=== PATIENT | female | born 1955 | race Caucasian/White ===

== ENCOUNTER 2019-06-14 08:34 | Emergency (ER) | payer OTHER, MEDICAID ==
[~2019-06-14] VITALS: Ht 154.9 cm; Wt 68.0 kg
[2019-06-14 09:16] LABS: Basophils # (auto) 0.1 uL; Basophils % (auto) 0.7 % (0.0-2.0); Eosinophils # (auto) 0.2 uL; Eosinophils % (auto) 1.1 % (0.0-7.0); Hematocrit 38.5 % (36.0-46.0); Hemoglobin 13.2 g/dL (12.2-16.2); Lymphocytes # (auto) 3.2 uL; Mean Corpuscular Hemoglobin 31.1 pg (28.0-32.0); Mean Corpuscular Hgb Conc. 34.3 g/dL (32.0-36.0); Mean Corpuscular Volume 90.8 fL (80.0-100.0); Monocytes # (auto) 1.1 uL; Monocytes % (auto) 6.7 % (0.0-12.0); Neutrophils # (auto) 11.5 uL; Neutrophils % (auto) 71.5 % (37.0-80.0); Platelet Count (auto) 330 10^3/uL (140-450); Red Blood Cells 4.24 10^6/uL (4.0-5.20); Red Cell Distribution Width 13.2 % (11.8-14.3); White Blood Cell 16.1 10^3/uL (4.4-10.8)
[2019-06-14 09:31] LABS: INR 0.93 (0.9-1.15); Partial Thromboplastin Time 24.1 sec (23.64-32.05)
[2019-06-14 12:01] VITALS: BP 130/77
== END 2019-06-14 13:02 | disposition home or self-care (01) ==
LOC: ER 08:34
DX: R04.0 Epistaxis (principal); F32.9 Major depressive disorder, single episode, unspecified; F41.9 Anxiety disorder, unspecified; E78.5 Hyperlipidemia, unspecified
CPT/HCPCS: 30901; 36415; 85025; 85610; 85730

== ENCOUNTER 2021-07-14 18:00 | Inpatient (IN) | payer OTHER, MEDICAID ==
[~2021-07-14] VITALS: Ht 157.5 cm; Wt 61.6 kg
[2021-07-14 19:09] LABS: Hematocrit 41.1 % (36.0-46.0); Hemoglobin 14.1 g/dL (12.2-16.2); Mean Corpuscular Hgb Conc. 34.4 g/dL (32.0-36.0); Mean Corpuscular Volume 93.2 fL (80.0-100.0); Red Blood Cells 4.41 10^6/uL (4.0-5.20); Red Cell Distribution Width 11.8 % (11.8-14.3); White Blood Cell 20.9 10^3/uL (4.4-10.8)
[2021-07-14 19:12] LABS: Basophils % (manual) 0 (0.0-2.0); Blast Cells 0; Eosinophils % (manual) 0 (0-7); Metamyelocytes % 0; Myelocytes % 0; Promyelocytes % 0; Reactive Lymphocytes 0
[2021-07-14 19:26] LABS: Albumin 3.4 g/dL (3.4-5.0); BUN/Creatinine Ratio 11.8; Calcium 8.8 mg/dL (8.5-10.1); Potassium 3.2 mmol/L (3.5-5.1)
[2021-07-14 19:29] LABS: Bilirubin, Total 1.7 mg/dL (0.2-1.0); Total Protein 7.6 g/dL (6.4-8.2)
[2021-07-14] MEDS ORDERED: AZITHROMYCIN 500MG/ 250ML 250 ML IV ONE (20:15)
[2021-07-14] MEDS ORDERED: methylPREDNISolone SOD SUCC 125 MG/2 ML VL IV ONE (20:15)
[2021-07-14 20:49] LABS: Band Neutrophils % (manual) 35; Lymphocytes % (manual) 2 (10.0-50.0); Monocytes % (manual) 3 (0-12)
[2021-07-14 22:31] LABS: Lactic Acid w/Reflex 2.5 mmol/L (0.4-2.0)
[2021-07-14] MEDS ORDERED: ACETAMINOPHEN 325 MG TAB PO PRN (23:15)
[2021-07-14] MEDS ORDERED: TEMAZEPAM 15 MG CAP PO PRN (23:15)
[2021-07-14] MEDS ORDERED: ONDANSETRON HCL 4 MG/2 ML VIAL IV PRN (23:15)
[2021-07-14] MEDS ORDERED: MORPHINE SULFATE INJECTION 2 MG/ML SYRG IV PRN (23:15)
[2021-07-14] MEDS ORDERED: ALBUTEROL SULF 2.5 MG/0.5ML(0.5%) NEB SOLN NEB PRN (23:15)
[2021-07-14] MEDS ORDERED: NITROGLYCERIN 0.4 MG SL TAB SL PRN (23:15)
[2021-07-14] MEDS ORDERED: IOHEXOL 350 MG/ML 100ML IJ ONE (23:26)
[2021-07-15] VITALS (7 sets, daily range): BP systolic 136–153; BP diastolic 58–99
[2021-07-15] MEDS ORDERED: chlordiazePOXIDE HCL 25 MG CAP PO PRN (01:00)
[2021-07-15 02:43] LABS: INR 1.19 (0.9-1.15); Partial Thromboplastin Time 30.8 sec (23.6-33.0)
[2021-07-15] MEDS ORDERED: ASPI-543 PO (03:25)
[2021-07-15] MEDS ORDERED: OLAN20TA PO (03:25)
[2021-07-15] MEDS ORDERED: SERT100T PO (03:25)
[2021-07-15 07:28] LABS: Basophils # (auto) 0 10 ^3/uL (0-0.2); Basophils % (auto) 0.1 % (0.0-2.0); Eosinophils # (auto) 0 10 ^3/uL (0-0.8); Hematocrit 37.1 % (36.0-46.0); Hemoglobin 12.6 g/dL (12.2-16.2); Lymphocytes # (auto) 0.7 10 ^3/uL (0.4-5.4); Lymphocytes % (auto) 4.6 % (10.0-50.0); Mean Corpuscular Hemoglobin 31.6 pg (28.0-32.0); Monocytes # (auto) 0.7 10 ^3/uL (0-1.3); Monocytes % (auto) 4.4 % (0.0-12.0); Neutrophils # (auto) 14.2 10 ^3/uL (1.6-8.6); Neutrophils % (auto) 90.9 % (37.0-80.0); Red Blood Cells 3.98 10^6/uL (4.0-5.20); Red Cell Distribution Width 12.2 % (11.8-14.3); White Blood Cell 15.6 10^3/uL (4.4-10.8)
[2021-07-15 07:44] LABS: Albumin 2.8 g/dL (3.4-5.0); Calcium 8.4 mg/dL (8.5-10.1); Potassium 3.2 mmol/L (3.5-5.1)
[2021-07-15 07:48] LABS: BUN/Creatinine Ratio 19.2; Bilirubin, Total 1.5 mg/dL (0.2-1.0); Total Protein 6.2 g/dL (6.4-8.2)
[2021-07-15] MEDS: cefTRIAXone 1GM/50ML D5W 50 ML IV SCH (08:46)
[2021-07-15] MEDS: ENOXAPARIN SOD 40 MG/0.4 ML SYRINGE SC SCH (08:47)
[2021-07-15] MEDS ORDERED: SERTRALINE HCL 50 MG TAB PO SCH ×2 (10:00→18:30)
[2021-07-15] MEDS ORDERED: ZINC SULFATE 220mg CAP or TAB PO SCH (10:00)
[2021-07-15] MEDS ORDERED: ASCORBIC ACID 500 MG TAB PO SCH (10:00)
[2021-07-15] MEDS: AZITHROMYCIN 500MG/ 250ML 250 ML IV SCH (10:30)
[2021-07-15] MEDS: FOLIC ACID 1 MG, MULTIPLE VITAMIN 10 ML, MAGNESIUM SULF SDV 50% 8 MEQ, THIAMINE INJ 100... INJ SCH ×5 (12:47)
[2021-07-15] MEDS ORDERED: SERT50TA19 PO (13:02)
[2021-07-15] MEDS ORDERED: OLAN1TAB19 PO (13:02)
[2021-07-15] MEDS ORDERED: OLANZapine 5 MG TAB PO SCH (18:30)
[2021-07-16 05:00] VITALS: BP 142/101
[2021-07-16 09:00] VITALS: BP 149/100
[2021-07-16] MEDS: cefTRIAXone 1GM/50ML D5W 50 ML IV SCH (09:17)
[2021-07-16] MEDS: AZITHROMYCIN 500MG/ 250ML 250 ML IV SCH (09:17)
[2021-07-16] MEDS: ENOXAPARIN SOD 40 MG/0.4 ML SYRINGE SC SCH (09:18)
[2021-07-16] MEDS ORDERED: ASPirin-EC 81 mg tab PO SCH (10:00)
[2021-07-16] MEDS: FOLIC ACID 1 MG, MULTIPLE VITAMIN 10 ML, MAGNESIUM SULF SDV 50% 8 MEQ, THIAMINE INJ 100... INJ SCH ×5 (12:00)
[2021-07-16] MEDS ORDERED: DOXY-286 PO (12:49)
[2021-07-16] MEDS ORDERED: PRED20TA2 PO (12:49)
[2021-07-16 13:00] VITALS: BP 146/82
== END 2021-07-16 16:15 | disposition home or self-care (01) | DRG 195 ==
LOC: ER 18:02 → TELE 23:02 → TELE-EAST 07-15 02:20 → EAST 07-15 17:32 → CENTRAL 07-15 17:44
PROVIDERS: ADMIT Nurse Practitioner; ATTEND Hospitalist
DX: J18.9 Pneumonia, unspecified organism (principal); F31.9 Bipolar disorder, unspecified; K76.0 Fatty (change of) liver, not elsewhere classified; F41.9 Anxiety disorder, unspecified; R00.0 Tachycardia, unspecified; R74.01 Elevation of levels of liver transaminase levels; Z20.822 Contact with and (suspected) exposure to COVID-19; Z82.49 Family history of ischemic heart disease and other diseases of the circulatory system; Z83.3 Family history of diabetes mellitus
CPT/HCPCS: 36415; 71045; 71250; 71260; 74177; 80053; 82728; 83605; 83880; 85007; 85025; 85027; 85379; 85610; 85730; 87040; 87426; 93005; 96365; 96375; G0378; J0696

== ENCOUNTER 2021-11-11 23:55 | Emergency (ER) | payer OTHER, MEDICAID ==
[~2021-11-11] VITALS: Ht 154.9 cm; Wt 55.3 kg
[~2021-11-11 23:55] MED LIST: ASPI-543 PO; DOXY-286 PO; OLAN1TAB19 PO; PRED20TA2 PO; SERT50TA19 PO
[2021-11-12 05:03] VITALS: BP 150/82
[2021-11-12] MEDS ORDERED: CEPH-509 PO (08:21)
== END 2021-11-12 08:33 | disposition home or self-care (01) ==
LOC: ER 11-12 00:02
DX: S01.81XA Laceration without foreign body of other part of head, initial encounter (principal); E78.5 Hyperlipidemia, unspecified; Z79.82 Long term (current) use of aspirin; Z79.2 Long term (current) use of antibiotics; Z79.899 Other long term (current) drug therapy; W22.8XXA Striking against or struck by other objects, initial encounter; Y93.89 Activity, other specified; Y92.89 Other specified places as the place of occurrence of the external cause; Y99.8 Other external cause status
CPT/HCPCS: 12013; 70450; 72125; 99284; J2001

== ENCOUNTER 2021-11-15 10:57 | Emergency (ER) | payer OTHER, MEDICAID ==
[~2021-11-15] VITALS: Ht 157.5 cm; Wt 54.4 kg
[~2021-11-15 10:57] MED LIST changes: +CEPH-509 PO
[2021-11-15 11:19] VITALS: BP 154/73
== END 2021-11-15 11:28 | disposition home or self-care (01) ==
LOC: ER 10:57
DX: S01.81XD Laceration without foreign body of other part of head, subsequent encounter (principal); X58.XXXD Exposure to other specified factors, subsequent encounter

== ENCOUNTER 2021-11-20 12:57 | Emergency (ER) | payer OTHER, MEDICAID ==
[~2021-11-20] VITALS: Ht 162.6 cm; Wt 54.4 kg
[2021-11-20 14:24] VITALS: BP 94/74
== END 2021-11-20 14:25 | disposition home or self-care (01) ==
LOC: ER 12:57
DX: S01.81XD Laceration without foreign body of other part of head, subsequent encounter (principal); X58.XXXD Exposure to other specified factors, subsequent encounter

== ENCOUNTER 2022-01-11 21:27 | Emergency (ER) | payer OTHER, MEDICAID ==
[~2022-01-11] VITALS: Ht 154.9 cm; Wt 54.4 kg
[2022-01-12 10:56] LABS: Potassium 3.5 mmol/L (3.5-5.1)
[2022-01-12 11:02] LABS: Albumin 3.9 g/dL (3.4-5.0); BUN/Creatinine Ratio 18.8; Bilirubin, Total 0.9 mg/dL (0.2-1.0); Total Protein 8.1 g/dL (6.4-8.2)
[2022-01-12] MEDS ORDERED: IBUPROFEN 800 MG TAB PO ONE (14:15)
[2022-01-12] MEDS ORDERED: LABETALOL HCL 5 MG/ML 4ML SYRINGE IV ONE (14:30)
[2022-01-12] MEDS ORDERED: CEPH-509 PO (14:36)
[2022-01-12 15:52] VITALS: BP 174/84
== END 2022-01-12 16:49 | disposition home or self-care (01) ==
LOC: ER 21:27
DX: L03.116 Cellulitis of left lower limb (principal)
CPT/HCPCS: 36415; 73562; 73590; 73610; 73701; 80053; 93971; 96374; J3490

== ENCOUNTER 2023-07-21 11:01 | Emergency (ER) | payer OTHER, MEDICAID ==
[~2023-07-21] VITALS: Ht 157.5 cm; Wt 56.8 kg
[~2023-07-21 11:01] MED LIST changes: +APIX2.5T PO; +SERT-206 PO; -SERT50TA19 PO
[2023-07-21 12:21] VITALS: BP 115/70; PULSE 115; RESP 18; TEMP 97.2; O2SAT 98
[2023-07-21] MEDS ORDERED: HYDROcodone-ACET 10/325MG TAB PO ONE (12:30)
[2023-07-21] MEDS ORDERED: PERCOT PO (13:21)
== END 2023-07-21 13:48 | disposition home or self-care (01) ==
LOC: ER 11:01
DX: S32.018A Other fracture of first lumbar vertebra, initial encounter for closed fracture (principal); F41.9 Anxiety disorder, unspecified; F32.9 Major depressive disorder, single episode, unspecified; E78.5 Hyperlipidemia, unspecified; Z79.899 Other long term (current) drug therapy; W01.0XXA Fall on same level from slipping, tripping and stumbling without subsequent striking against object, initial encounter; Y93.89 Activity, other specified; Y92.098 Other place in other non-institutional residence as the place of occurrence of the external cause; Y99.8 Other external cause status
CPT/HCPCS: 72070; 72100; 72220

== ENCOUNTER 2024-01-01 14:31 | Emergency (ER) | payer OTHER, MEDICAID ==
[~2024-01-01] VITALS: Ht 157.5 cm; Wt 60.0 kg
[~2024-01-01 14:31] MED LIST changes: +PERCOT PO
[2024-01-01 16:01] VITALS: BP 149/79; PULSE 89; RESP 14; TEMP 97.8; O2SAT 97
[2024-01-01] MEDS: HYDROcodone-ACET 5/325MG TAB PO ONE (16:36)
[2024-01-01] MEDS ORDERED: TRAM-626 PO (16:57)
== END 2024-01-01 17:03 | disposition home or self-care (01) ==
LOC: ER 14:31
DX: G89.29 Other chronic pain (principal); M54.50 Low back pain, unspecified; M53.3 Sacrococcygeal disorders, not elsewhere classified; E78.5 Hyperlipidemia, unspecified
CPT/HCPCS: 72100; 72220

== ENCOUNTER 2024-11-09 20:39 | Emergency (ER) | payer OTHER, MEDICAID ==
[~2024-11-09] VITALS: Ht 157.5 cm; Wt 58.8 kg
[~2024-11-09 20:39] MED LIST changes: +TRAM-626 PO
--- NOTE | 2024-11-09 23:10 | DVH ---
HISTORY: FALL FACIAL TRAUMA TECHNIQUE: Nonenhanced axial images through the facial bones with coronal and sagittal MPR. Radiation Dose Information: CT Dose: CTDI volume is mGy. Dose-length product is mGy*cm COMPARISON: None FINDINGS: Soft tissues: Scalp hematoma in forehead and left periorbital region. Mandible: Unremarkable Maxilla: Unremarkable Zygomatic arches: Unremarkable Nasal bone: Unremarkable Orbits: Unremarkable Paranasal sinuses/Mastoid air cells/Middle ear cavities: Mild mucosal thickening in left maxillary sinus; otherwise unremarkable. Mastoid air cells and middle ear cavities are clear. IMPRESSION: Scalp hematoma in forehead and left periorbital region. No facial fracture. 2 [facility] Radiation optimization: All CT scans at this facility use at least one of these dose optimiza tion techniques: automated exposure control mA and/or kV adjustment per patient size (includes targe dayo exams where dose is matched to clinical indication) or iterative reconstruction.
[2024-11-10 00:27] VITALS: BP 156/89; PULSE 82; RESP 18; TEMP 97.6; O2SAT 97
--- NOTE | 2024-11-10 01:19 | ED.PDOC ---
HPI Comments PATIENT TRIPPED OVER A ROOT IN HER DRIVEWAY, HITTING HER HEAD ONTHE CONCRETE. PT HAS LEFT BLACK EYE, SWELLING, AND APPROXIMATE 2CM LACERATION ON HER LEFT CHEEK. DENIES LOC, DENIES N/V. DENIES LOC, NECK, BACK PAIN, CHEST PAIN, ABDOMINAL PAIN, NAUSEA, VOMITING, OR HIP PAIN Chief Complaint: Fall Injury Time Seen by MD: 21:14 Primary Care Provider: RICKY Emmanuel Notes: Nurses Notes, Medications, Allergies Allergies: Coded Allergies: NO KNOWN ALLERGIES (Unverified , 06/14/19) Home Meds Active Scripts Tramadol HCl (Tramadol HCl) 50 Mg Tab, 50 MG PO BID, #20 TAB Prov:MARSHALL CARO 01/01/24 Oxycodone W/ Acetaminophen (Percocet 5/325MG) 1 Tab Tb, 1 TAB PO Q8HP PRN, #20 TAB Prov:JEREMIE FERNANDEZ PAC 07/21/23 Apixaban Base (ELIQUIS) 2.5 Mg Tab, 2.5 MG PO BID, #60 TAB 0 Refills Prov:BÁRBARA CONNORS MD 01/28/22 Cephalexin (KEFLEX 500) 500 Mg Cap, 1 CAP PO TID for 7 Days, #21 CAP Prov:EVELIA FINNEGAN MD 01/12/22 Cephalexin (KEFLEX 500) 500 Mg Cap, 1 CAP PO QID for 5 Days, #20 CAP Prov:NATALIA RODRIGES MD 11/12/21 Prednisone (Prednisone) 20 Mg Tab, 20 MG PO DAILY, #5 MG Prov:BEBE ANDRADE MD 07/16/21 Doxycycline Hyclate (DOXYCYCLINE HYCLATE) 100 Mg Tab, 1 TAB PO BID, #14 TAB Prov:BEBE ANDRADE MD 07/16/21 Reported Medications Olanzapine (OLANZAPINE) 10 Mg Tab, 15 MG PO QPM for 30 Days, MG 07/15/21 Sertraline Hcl (Sertraline Hcl) 50 Mg Tab, 200 MG PO QPM for 30 Days, MG 07/15/21 Aspirin (Aspir-Low) 81 Mg Tab, 81 MG PO DAILY for 30 Days, MG 07/15/21 Mode of Arrival: Ambulatory Complexity: Intermediate Laceration Length (cm): 2 Appearance of Wound 2CM Past Medical History PAST MEDICAL HISTORY: Anxiety, Depression, High Lipids Surgical History: Denies all surgeries CURATORIAL ASSISTANT History: No Pertinent CURATORIAL ASSISTANT History Family History Family History: Reviewed,noncontributory to illness, Family hx of DM, Family hx of heart roberto, Family hx of HTN Social History Smoker: Non-Smoker Alcohol: Occasionally Drugs: Denies Drug Use Lives In: Home Constitutional: denies: chills, diaphoresis, fatigue, fever, malaise, sweats, weakness, others EENTM: denies: blurred vision, double vision, ear bleeding, ear discharge, ear drainage, ear pain, ear ringing, eye pain, eye redness, hearing loss, mouth pain, mouth swelling, nasal discharge, nose bleeding, nose congestion, nose pain, photophobia, tearing, throat pain, throat swelling, voice changes, others Respiratory: denies: cough, hemoptysis, orthopnea, SOB at rest, shortness of breath, SOB with excertion, stridor, wheezing, others Cardiovascular: denies: chest pain, dizzy spells, diaphoresis, Dyspnea on exertion, edema, irregular heart beat, left arm pain, lightheadedness, palpitations, PND, syncope, others Gastrointestinal: denies: abdomen distended, abdominal pain, blood streaked bowels, constipated, diarrhea, dysphagia, difficulty swallowing, hematemesis, melena, nausea, poor appetite, poor fluid intake, rectal bleeding, rectal pain, vomiting, others Genitourinary: denies: abnormal vagina bleeding, burning, dyspareunia, dysuria, flank pain, frequency, hematuria, incontinence, pain, , vagina discharge, urgency, others Neurological: reports: headache; denies: dizziness, fainting, left sided numbness, left sided weakness, numbness, paresthesia, pre-existing deficit, right sided numbness, right sided weakness, seizure, speech problems, tingling, tremors, weakness, others Musculoskeletal: denies: back pain, gout, joint pain, joint swelling, muscle pain, muscle stiffness, neck pain, others Integumetry: reports: bruises, laceration; denies: change in color, change in hair/nails, dryness, lesions, lumps, rash, wounds, others Allergic/Immunocompromised: denies: Difficulty Healing, Frequent Infections, Hives, Itching, others Hematologic/Lymphatic: denies: anemia, blood clots, easy bleeding, easy bruising, swollen glands, others Endocrine: denies: excessive hunger, excessive sweating, excessive thirst, excessive urination, flushing, intolerance to cold, intolerance to heat, unexplained weight gain, unexplained weight loss, others Psychiatric: denies: anxiety, bipolar disorder, depression, hopeless, panic disorder, schizophrenia, sleepless, suicidal, others Physical Exam General Appearance: No Apparent Distress, Normal HEENT: Normal ENT Inspection, Pharynx Normal, TMs Normal Neck: Full Range of Motion, Non-Tender Respiratory: Chest Non-Tender, Lungs Clear, No Respiratory Distress, Normal Breath Sounds Cardiovascular: No Edema, No JVD, No Murmur, No Gallop, Normal Peripheral Pu lses, Regular Rate/Rhythm Breast Exam: Deferred Gastrointestinal: No Organomegaly, Non Tender, No Pulsatile Mass, Normal Bowel Sounds, Soft Genitalia: Deferred Pelvic: Deferred Rectal: Deferred Extremities: Normal capillary refill, Normal inspection, Normal range of motion, Non-tender, No pedal edema Musculoskeletal : Apperance: Normal Neurologic: Alert, outdoor adventure leader II-XII nml as Tested, No Motor Deficits, Normal Affect, Normal Mood, No Sensory Deficits Cerebellar Function: Normal Reflexes: Normal Skin: Dry, Lacerations (2CM FULL-THICKNESS LACERATION UNDER LEFT EYE AND LEFT CHEEK BLEEDING CONTROLLED NO OBVIOUS FOREIGN BODY ECCHYMOSIS LEFT LOWER EYE. ), Normal Color, Warm Lymphatic: No Adenopathy Was a procedure done? Was a procedure done?: Yes Sedation Sedation?: No Informed consent obtained: Yes Laceration Repair : Location LEFT CHEEK Length 2CM Anesthetic: Lidocaine, Without epi Laceration Repair Prep: Saline Laceration Repair Wound Comple: epidermis/dermis repair Laceration Repair: Number of sutures (4) Informed consent obtained: Yes Risks, benefits, and alternati: Yes Notes PATIENT TOLERATED WELL WITH MINIMAL BLOOD LOSS Differential diagnosis Generic Laceration: Hematoma, Fracture, Retained Foriegn Body, Avulsion X-Ray, Labs, Meds, VS Vital Signs Date Time Temp Pulse Resp B/P (MAP) Pulse Ox O2 Delivery O2 Flow Rate FiO2 11/10/24 00:27 97.6 82 18 156/89 (111) 97 97.6 11/10/24 00:27 82 18 97 Room Air 11/09/24 21:45 97.6 82 18 169/84 (112) 98 X-Ray, Labs, Meds, VS Comment SEE PROCEDURE NOTE LACERATION REPAIRED. MAXILLOFACIAL CT NEGATIVE FOR FRACTURES, OSSEOUS LESIONS, DISLOCATIONS. SUTURES REMOVED IN 5-7 DAYS. [id number] TYLENOL OR MOTRIN NEEDED FOR THE PAIN PER LABELED DOSING INSTRUCTIONS. RETURN PRECAUTIONS FOR UNCONTROLLED BLEEDING SIGNS AND SYMPTOMS OF INFECTION CONFUSION, LETHARGY, SLURRED SPEECH OR ANY CONCERNING SYMPTOMS. PATIENT INDICATES UNDERSTANDING AND AGREES WITH DISCHARGE PLAN OF CARE Time of 1ST Reevaluation: 01:18 Reevaluation 1ST: Improved Patient Education/Counseling: Diagnosis, Treatment, Prognosis, Need For Follow Up Family Education/Counseling: No Family Present Departure 1 Departure Time of Disposition: 01:18 Impression: Primary Impression: Facial laceration Qualified Codes: S01.81XA - Laceration without foreign body of other part of head, initial encounter Additional Impressions: Forehead contusion Qualified Codes: S00.83XA - Contusion of other part of head, initial encounter Facial contusion Qualified Codes: S00.83XA - Contusion of other part of head, initial encounter Disposition: 01 HOME / SELF CARE / HOMELESS Condition: Stable Discharged With: Friend Critical Care Note Critical Care Time?: No Stability Stability form required: HEYDI Cunha Nov 10, 2024 01:19
== END 2024-11-10 01:29 | disposition home or self-care (01) ==
LOC: ER 20:39
DX: S01.412A Laceration without foreign body of left cheek and temporomandibular area, initial encounter (principal); F41.9 Anxiety disorder, unspecified; F32.A Depression, unspecified; E78.5 Hyperlipidemia, unspecified; Z79.01 Long term (current) use of anticoagulants; Z79.52 Long term (current) use of systemic steroids; Z79.82 Long term (current) use of aspirin; Z79.899 Other long term (current) drug therapy; W22.09XA Striking against other stationary object, initial encounter; Y93.89 Activity, other specified; Y92.89 Other specified places as the place of occurrence of the external cause; Y99.8 Other external cause status
CPT/HCPCS: 12011; 70486; 99284; J2003

== ENCOUNTER 2024-11-20 15:13 | Emergency (ER) | payer OTHER, MEDICAID ==
[~2024-11-20] VITALS: Ht 157.5 cm; Wt 61.7 kg
[2024-11-20 15:35] VITALS: BP 153/73; PULSE 85; RESP 16; TEMP 98.1; O2SAT 96
--- NOTE | 2024-11-20 15:45 | ED.PDOC ---
History of Present Illness(SKN HPI Comments suture removal Chief Complaint: Suture Removal Time Seen by MD: 15:28 Primary Care Provider: unknown History of Present Illness: Nurses Notes, Medications, Allergies Allergies: Coded Allergies: NO KNOWN ALLERGIES (Unverified , 06/14/19) Home Meds Active Scripts Tramadol HCl (Tramadol HCl) 50 Mg Tab, 50 MG PO BID, #20 TAB Prov:MARSHALL CARO PA 01/01/24 Oxycodone W/ Acetaminophen (Percocet 5/325MG) 1 Tab Tb, 1 TAB PO Q8HP PRN, #20 TAB Prov:JEREMIE FERNANDEZ PAC 07/21/23 Apixaban Base (ELIQUIS) 2.5 Mg Tab, 2.5 MG PO BID, #60 TAB 0 Refills Prov:BÁRBARA CONNORS MD 01/28/22 Cephalexin (KEFLEX 500) 500 Mg Cap, 1 CAP PO TID for 7 Days, #21 CAP Prov:EVELIA FINNEGAN MD 01/12/22 Cephalexin (KEFLEX 500) 500 Mg Cap, 1 CAP PO QID for 5 Days, #20 CAP Prov:NATALIA RODRIGES MD 11/12/21 Prednisone (Prednisone) 20 Mg Tab, 20 MG PO DAILY, #5 MG Prov:BEBE ANDRADE MD 07/16/21 Doxycycline Hyclate (DOXYCYCLINE HYCLATE) 100 Mg Tab, 1 TAB PO BID, #14 TAB Prov:BEBE ANDRADE MD 07/16/21 Reported Medications Olanzapine (OLANZAPINE) 10 Mg Tab, 15 MG PO QPM for 30 Days, MG 07/15/21 Sertraline Hcl (Sertraline Hcl) 50 Mg Tab, 200 MG PO QPM for 30 Days, MG 07/15/21 Aspirin (Aspir-Low) 81 Mg Tab, 81 MG PO DAILY for 30 Days, MG 07/15/21 Information Source: Patient Mode of Arrival: Ambulatory Past Medical History PAST MEDICAL HISTORY: Anxiety, Depression, High Lipids Surgical History: Denies all surgeries SERVICING REP History: No Pertinent SERVICING REP History Family History Family History: Reviewed,noncontributory to illness, Family hx of DM, Family hx of heart roberto, Family hx of HTN Social History Smoker: Non-Smoker Alcohol: Occasionally Drugs: Denies Drug Use Lives In: Home All Other Systems: Reviewed and Negative (per hpi) Physical Exam General Appearance: No Apparent Distress, Normal HEENT: Normal ENT Inspection, Pharynx Normal, TMs Normal Neck: Full Range of Motion, Non-Tender, Normal, Normal Inspection Respiratory: Chest Non-Tender, Lungs Clear, No Accessory Muscle Use, No Respiratory Distress, Normal Breath Sounds Cardiovascular: No Edema, No JVD, No Murmur, No Gallop, Normal Peripheral Pulses, Regular Rate/Rhythm Breast Exam: Deferred Gastrointestinal: No Organomegaly, Non Tender, No Pulsatile Mass, Normal Bowel Sounds, Soft Genitalia: Deferred Pelvic: Deferred Rectal: Deferred Extremities: No calf tenderness, Normal capillary refill, Normal inspection, Normal range of motion, Non-tender, No pedal edema Musculoskeletal : Apperance: Normal Neurologic: Alert, audio/video engineer II-XII nml as Tested, No Motor Deficits, Normal Affect, Normal Mood, No Sensory Deficits Cerebellar Function: Normal Reflexes: Normal Skin: Dry, Normal Color, Warm Lymphatic: No Adenopathy Was a procedure done? Was a procedure done?: No Differential Diagnosis (INTG) Differential Diagnosis: Other X-Ray, Labs, Meds, VS Vital Signs Date Time Temp Pulse Resp B/P (MAP) Pulse Ox O2 Delivery O2 Flow Rate FiO2 11/20/24 15:35 85 16 96 Room Air 11/20/24 15:35 98.1 85 16 153/73 (99) 96 98.1 11/20/24 15:19 98.1 85 16 153/73 (99) 96 98.1 X-Ray, Labs, Meds, VS Comment Suture removed using sterile technique Tolerated well Time of 1ST Reevaluation: 15:30 Reevaluation 1ST: Improved Patient Education/Counseling: Diagnosis, Treatment Family Education/Counseling: Diagnosis, Treatment Departure 1 Departure Time of Disposition: 15:45 Impression: Primary Impression: Visit for suture removal Disposition: 01 HOME / SELF CARE / HOMELESS Condition: Stable Additional Instructions: Discharge Note: Drink plenty of fluids. Follow up with your primary Dr. If your condition becomes worse call and follow up with your primary Dr. for instructions or return to the ER if needed. Thank you for visiting [facility]. Critical Care Note Critical Care Time?: No Stability Stability form required: No Heart Score Heart Score: Heart Score Response (Comments) Value History N/A 0 EKG N/A 0 Age N/A 0 Risk Factors N/A 0 Troponin N/A 0 Total 0 KATHRYN ALVES NP Nov 20, 2024 15:45
== END 2024-11-20 15:47 | disposition home or self-care (01) ==
LOC: ER 15:13
DX: S01.81XD Laceration without foreign body of other part of head, subsequent encounter (principal); F41.9 Anxiety disorder, unspecified; F32.A Depression, unspecified; E78.5 Hyperlipidemia, unspecified; Z79.899 Other long term (current) drug therapy; Z79.82 Long term (current) use of aspirin; Z79.01 Long term (current) use of anticoagulants; Z79.52 Long term (current) use of systemic steroids; X58.XXXD Exposure to other specified factors, subsequent encounter

== ENCOUNTER 2025-07-18 10:19 | Emergency (ER) | payer OTHER, MEDICAID ==
[~2025-07-18] VITALS: Ht 157.5 cm; Wt 60.0 kg
--- NOTE | 2025-07-18 11:36 | DVH ---
CLINICAL INDICATION: FALL, foot pain TECHNIQUE: XY R FOOT 3 VIEW XRAY Comparison: None FINDINGS/IMPRESSION: : Comminuted and minimally displaced fracture of the base of the 5th metatarsal.
--- NOTE | 2025-07-18 11:47 | ED.PDOC ---
Musculoskeletal HPI Comments A 70 YEAR OLD FEMALE PRESENTS TO THE ED WITH COMPLAINT OF RIGHT FOOT PAIN. PATIENT STATES HE WAS AT HOME YESTERDAY AFTERNOON AND STATES SHE SLIPPED AND ROLLED ON HER RIGHT FOOT. PATIENT STATES SINCE SHE HAS BEEN HAVING PAIN AND SWELLING WITH THE ASSOCIATED PAIN WITH AMBULATION AND CAME TODAY FOR EVALUATION. T PATIENT DENIES FEVER, CHILLS, SHORTNESS OF BREATH, CHEST PAIN, ABDOMINAL PAIN, NAUSEA, VOMITING, HEADACHE, OR OTHER COMPLAINTS. NO OTHER SYMPTOMS OR MODIFYING FACTORS AT THIS TIME. PATIENT IS ALERT, ORIENTED X 4, AND HAS STEADY GAIT. Chief Complaint: Lower Extremity Time Seen by MD: 11:52 Primary Care Provider: unknown Reviewed Notes: Nurses Notes, Medications, Allergies Allergies: Coded Allergies: NO KNOWN ALLERGIES (Unverified , 06/14/19) Home Meds Active Scripts Acetaminophen (Tylenol 8 Hour Arthritis) 650 Mg Tab, 650 MG PO TID, #30 TAB Prov:MARSHALL CARO 07/18/25 Tramadol HCl (Tramadol HCl) 50 Mg Tab, 50 MG PO BID, #20 TAB Prov:MARSHALL CARO 01/01/24 Oxycodone W/ Acetaminophen (Percocet 5/325MG) 1 Tab Tb, 1 TAB PO Q8HP PRN, #20 TAB Prov:JEREMIE FERNANDEZ PAC 07/21/23 Apixaban Base (ELIQUIS) 2.5 Mg Tab, 2.5 MG PO BID, #60 TAB 0 Refills Prov:BÁRBARA CONNORS MD 01/28/22 Cephalexin (KEFLEX 500) 500 Mg Cap, 1 CAP PO TID for 7 Days, #21 CAP Prov:EVELIA FINNEGAN MD 01/12/22 Cephalexin (KEFLEX 500) 500 Mg Cap, 1 CAP PO QID for 5 Days, #20 CAP Prov:NATALIA RODRIGES MD 11/12/21 Prednisone (Prednisone) 20 Mg Tab, 20 MG PO DAILY, #5 MG Prov:BEBE ANDRADE MD 07/16/21 Doxycycline Hyclate (DOXYCYCLINE HYCLATE) 100 Mg Tab, 1 TAB PO BID, #14 TAB Prov:BEBE ANDRADE MD 07/16/21 Reported Medications Olanzapine (OLANZAPINE) 10 Mg Tab, 15 MG PO QPM for 30 Days, MG 07/15/21 Sertraline Hcl (Sertraline Hcl) 50 Mg Tab, 200 MG PO QPM for 30 Days, MG 07/15/21 Aspirin (Aspir-Low) 81 Mg Tab, 81 MG PO DAILY for 30 Days, MG 07/15/21 Information Source: Patient Mode of Arrival: Wheelchair Brought in by: SELF Location: Right Extremity Location: Foot Timing: Hours Prehospital treatment: None Severity: Moderate Able to Move Extremity: Yes Bear Weight: Limited Pain: Moderate Hand Dominance: Right Mechanism: Other Circumstances: Fall Onset of Symptoms: During Exercise Symptoms: Swelling, Pain DVT Risk Factors: NONE Last Tetanus: UTD Associated signs and symptoms: Foot pain Past Medical History PAST MEDICAL HISTORY: Anxiety, Depression, High Lipids Surgical History: Denies all surgeries OIL CHANGER History: No Pertinent OIL CHANGER History Family History Family History: Reviewed,noncontributory to illness, Family hx of DM, Family hx of heart roberto, Family hx of HTN Social History Smoker: Non-Smoker Alcohol: Occasionally Drugs: Denies Drug Use Lives In: Home Constitutional: denies: chills, diaphoresis, fatigue, fever, malaise, sweats, weakness, others EENTM: denies: blurred vision, double vision, ear bleeding, ear discharge, ear drainage, ear pain, ear ringing, eye pain, eye redness, hearing loss, mouth pain, mouth swelling, nasal discharge, nose bleeding, nose congestion, nose benigno n, photophobia, tearing, throat pain, throat swelling, voice changes, others Respiratory: denies: cough, hemoptysis, orthopnea, SOB at rest, shortness of breath, SOB with excertion, stridor, wheezing, others Cardiovascular: denies: chest pain, dizzy spells, diaphoresis, Dyspnea on exertion, edema, irregular heart beat, left arm pain, lightheadedness, palpitations, PND, syncope, others Gastrointestinal: denies: abdomen distended, abdominal pain, blood streaked bowels, constipated, diarrhea, dysphagia, difficulty swallowing, hematemesis, melena, nausea, poor appetite, poor fluid intake, rectal bleeding, rectal pain, vomiting, others Genitourinary: denies: abnormal vagina bleeding, burning, dyspareunia, dysuria, flank pain, frequency, hematuria, incontinence, pain, , vagina discharge, urgency, others Neurological: denies: dizziness, fainting, headache, left sided numbness, left sided weakness, numbness, paresthesia, pre-existing deficit, right sided numbness, right sided weakness, seizure, speech problems, tingling, tremors, weakness, others Musculoskeletal: reports: joint pain (RIGHT), joint swelling (RIGHT FOOT); denies: back pain, gout, muscle pain, muscle stiffness, neck pain, others Integumetry: denies: bruises, change in color, change in hair/nails, dryness, laceration, lesions, lumps, rash, wounds, others Allergic/Immunocompromised: denies: Difficulty Healing, Frequent Infections, Hives, Itching, others Hematologic/Lymphatic: denies: anemia, blood clots, easy bleeding, easy bruising, swollen glands, others Endocrine: denies: excessive hunger, excessive sweating, excessive thirst, excessive urination, flushing, intolerance to cold, intolerance to heat, unexplained weight gain, unexplained weight loss, others Psychiatric: denies: anxiety, bipolar disorder, depression, hopeless, panic disorder, schizophrenia, sleepless, suicidal, others All Other Systems: Reviewed and Negative Physical Exam General Appearance: No Apparent Distress, Normal HEENT: Normal ENT Inspection, PERRL/EOMI, Pharynx Normal, TMs Normal Neck: Full Range of Motion, Non-Tender, Normal, Normal Inspection Respiratory: Chest Non-Tender, Lungs Clear, No Accessory Muscle Use, No Respiratory Distress, Normal Breath Sounds Cardiovascular: No Edema, No JVD, No Murmur, No Gallop, Normal Peripheral Pulses, Regular Rate/Rhythm Breast Exam: Deferred Gastrointestinal: No Organomegaly, Non Tender, No Pulsatile Mass, Normal Bowel Sounds, Soft Genitalia: Deferred Pelvic: Deferred Rectal: Deferred Extremities: Decreased range of motion, No calf tenderness, Normal capillary refill, No pedal edema, Swelling (BONY TENDERNESS AND SWELLING ON RIGHT LATERAL FOOT, NO DEFORMITY. ), Tender (AND MILD SWELLING ON RIGHT LATERAL FOOT, NO DEFORMITY. ) Musculoskeletal : Apperance: Normal Neurologic: Alert, sweat box attendant II-XII nml as Tested, No Motor Deficits, Normal Affect, Normal Mood, No Sensory Deficits Cerebellar Function: Normal Reflexes: Normal Skin: Dry, Normal Color, Warm Peripheral Pulses: 2+ carotid (R), 2+ carotid (L), 2+ dorsalis pedis (R), 2+ dorsalis pedis (L) Lymphatic: No Adenopathy Was a procedure done? Was a procedure done?: No Differential Diagnosis EXT Differential Diagnosis: Fracture, Sprain, Contusion, Strain, Bursitis X-Ray, Labs, Meds, VS Vital Signs Date Time Temp Pulse Resp B/P (MAP) Pulse Ox O2 Delivery O2 Flow Rate FiO2 07/18/25 11:56 98.6 85 16 154/91 (112) 99 98.6 07/18/25 11:56 85 16 99 Room Air 07/18/25 10:21 97.6 86 15 164/104 98 97.6 [facility] [address] [address] Ph: [phone] DIAGNOSTIC IMAGING Diagnostic Imaging Report : [id number] Signed PATIENT: MIN WOODS ACCT: [id number] UNIT: [id number] : 1955 LOC: ER ROOM / BED: / AGE / SEX: 70 / F ADM STATUS: REG ER SERVICE 1058 ORDERING PHYSICIAN: MARSHALL CARO PROCEDURE(s): RFOOT - R FOOT 3 VIEW XRAY REASON: FALL ORDER NUMBER(s): [id number], ACCESSION NUMBER(s): [id number] CLINICAL INDICATION: FALL, foot pain TECHNIQUE: XY R FOOT 3 VIEW XRAY Comparison: None FINDINGS/IMPRESSION: : Comminuted and minimally displaced fracture of the base of the 5th metatarsal. ATED BY: ALEXIS ANN MD DICTATED DATE/TIME: 07/18/25 113 SIGNED BY: ALEXIS ANN MD SIGNED DATE/TIME: 07/18/25 113 CC: X-Ray, Labs, Meds, VS Comment COURSE: EXTERNAL MEDICAL RECORDS REVIEWED: [NONE] INDEPENDENT HISTORIANS: [NONE] SOCIAL DETERMINANTS OF HEALTH: [NONE] LABS ORDERED: REVIEWED AND INTERPRETED RESULTS: NONE IMAGING ORDERED: RIGHT FOOT X-RAY TREATMENTS ORDERED: PT DECLINED PAIN MEDICATION, POSTERIOR SPLINT OF TIGHT LOWER LEG APPLIED. PROCEDURES PERFORMED: NONE CRITICAL CARE TIME: NONE I HAVE DISCUSSED THE PATIENT WITH THE ATTENDING PHYSICIAN DR. WHITE, AND HE AGREES WITH THE PATIENT'S PLAN OF CARE AND DISPOSITION. BASED ON HISTORY OF PRESENT ILLNESS, AND PHYSICAL EXAM, PATIENT WILL BE DISCHARGED HOME. DISCUSSED PLAN FOR DISCHARGE HOME WITH RX TYLENOL 650MG]. MEDICATION WARNINGS GIVEN. SHARED DECISION MAKING: DISCUSSED WITH PATIENT THAT THEIR WORKUP WAS NORMAL. PATIENT INSTRUCTED TO FOLLOW UP WITH PRIMARY CARE PROVIDER IN 1-2 DAYS FOR RE- EVALUATION OF SYMPTOMS. PATIENT VERBALIZES UNDERSTANDING TO RETURN TO ED FOR NEW OR WORSENING SYMPTOMS OR IF FOLLOW UP WITH PCP CANNOT BE OBTAINED. PATIENT FEELS COMFORTABLE GOING HOME AT THIS TIME. ALL QUESTIONS ADDRESSED AT TIME OF DISCHARGE. Time of 1ST Reevaluation: 12:20 Reevaluation 1ST: Improved Patient Education/Counseling: Diagnosis, Treatment, Need For Follow Up Family Education/Counseling: Diagnosis, Treatment, Need For Follow Up Medical Screening: No EMC Exist At This Time Departure 1 Departure Time of Disposition: 12:25 Impression: Primary Impression: Fracture of fifth metatarsal bone of right foot Qualified Codes: S92.354A - Nondisplaced fracture of fifth metatarsal bone, right foot, initial encounter for closed fracture Disposition: 01 HOME / SELF CARE / HOMELESS Condition: Stable Additional Instructions: INSTRUCTIONS: FOLLOW-UP WITH PCP IN 1 TO 2 DAYS. TAKE MEDICATIONS PRESCRIBED. RETURN TO ED FOR ANY NEW OR WORSENING SYMPTOMS. e-Prescriptions Acetaminophen (Tylenol 8 Hour Arthritis) 650 Mg Tab 650 MG PO TID, #30 TAB Prov: MARSHALL CARO 07/18/25 Discharged With: Self Critical Care Note Critical Care Time?: No Stability Stability form required: No Heart Score Heart Score: Heart Score Response (Comments) Value History N/A 0 EKG N/A 0 Age N/A 0 Risk Factors N/A 0 Troponin N/A 0 Total 0 I personally scribed for MARSHALL CARO ([email or web address]) on 07/18/25 at 11:47. Electronically submitted by Layla Power ([email or web address]). I personally scribed for MARSHALL CARO ([email or web address]) on 07/18/25 at 11:56. Electr onically submitted by Layla Power ([email or web address]). MARSHALL CARO Jul 18, 2025 11:47
[2025-07-18 11:56] VITALS: BP 154/91; PULSE 85; RESP 16; TEMP 98.6; O2SAT 99
[2025-07-18] MEDS ORDERED: ACET-1080 PO (12:19)
== END 2025-07-18 12:20 | disposition home or self-care (01) ==
LOC: ER 10:19
DX: S92.354A Nondisplaced fracture of fifth metatarsal bone, right foot, initial encounter for closed fracture (principal); F41.9 Anxiety disorder, unspecified; E78.5 Hyperlipidemia, unspecified; F32.A Depression, unspecified; Z79.82 Long term (current) use of aspirin; Z79.899 Other long term (current) drug therapy; W01.0XXA Fall on same level from slipping, tripping and stumbling without subsequent striking against object, initial encounter; Y93.89 Activity, other specified; Y92.89 Other specified places as the place of occurrence of the external cause; Y99.8 Other external cause status
CPT/HCPCS: 29515; 73630